=== PATIENT | female | born 1985 | race Two or more races ===

== ENCOUNTER 2024-12-31 09:30 | Emergency (ER) | payer BC | END 2024-12-31 09:52 | disposition left against medical advice (07) | LOC: ER 09:30 | DX: R07.9 Chest pain, unspecified (principal); Z53.21 Procedure and treatment not carried out due to patient leaving prior to being seen by health care provider ==

== ENCOUNTER 2025-11-01 17:12 | Emergency (ER) | payer BC ==
[~2025-11-01] VITALS: Ht 160 cm; Wt 50.0 kg
[2025-11-01 17:15] VITALS: O2SAT 99
[2025-11-01] MEDS: ONDANSETRON HCL 4MG/2ML INJ IV ONE (18:06)
[2025-11-01] MEDS: KETOROLAC 15MG/ML VIAL IV ONE (18:06)
[2025-11-01] MEDS: MORPHINE SULFATE 4 MG/ML INJ (FOR IV/IM USE) IV ONE (18:06)
[2025-11-01] MEDS: SODIUM CHLORIDE 0.9% 1,000 ML IV ONE (18:06)
[2025-11-01] MEDS: DEXAMETHASONE 10 MG/ML VIAL IV ONE (18:33)
[2025-11-01] MEDS: CEFTRIAXONE 1GM/50ML 50 ML IV ONE (18:39)
[2025-11-01 18:57] LABS: HEMATOCRIT. 36.4 % (36.0-48.0); HEMOGLOBIN. 12.3 g/dL (12.0-16.0); MEAN PLATELET VOLUME 7.6 fl (7.4-10.4); PLATELET 361 x1000/uL (130-400); RED BLOOD CELL COUNT 3.92 mill/uL (4.2-5.4); RED CELL DISTRIBUTION WIDTH 13.1 % (11.6-14.6)
[2025-11-01 19:13] LABS: CREATININE 0.7 mg/dL (0.6-1.0); UREA NITROGEN BLOOD 9 mg/dL (9-23)
[2025-11-01 19:14] LABS: LYMPHOCYTES % MANUAL 3.0 % (20.0-60.0); MONOCYTES % MANUAL 5.0 % (2.0-8.0); NEUTROPHILS % MANUAL 92.0 % (45.0-75.0); PLATELET ESTIMATE NORMAL
[2025-11-01 19:19] LABS: HCG SCREEN POSITIVE
[2025-11-01] MEDS: CETIRIZINE 10MG TABLET PO ONE (19:28)
[2025-11-01] MEDS ORDERED: CEPH500T MT (20:32)
[2025-11-01 20:47] VITALS: BP 101/72; PULSE 110; RESP 19; TEMP 36.7; O2SAT 96
[2025-11-01] MEDS: MORPHINE SULFATE 2 MG/ML INJ (NOT FOR IM USE) IV ONE (20:58)
[2025-11-01] MEDS: ACETAMINOPHEN 325MG TABLET PO ONE (20:58)
== END 2025-11-01 21:08 | disposition home or self-care (01) ==
LOC: ER 17:12
DX: G89.18 Other acute postprocedural pain (principal); N95.1 Menopausal and female climacteric states; Z32.01 Encounter for pregnancy test, result positive
CPT/HCPCS: 80048; 84703; 85025; 36415; 99284; J0696; J1100; J1885; J2405; J2270 ×2; J7030; Z7610 ×4